=== PATIENT | female | born 1930 | race Caucasian/White ===

== ENCOUNTER → 2017-02-04 | Outpatient (CLI) | payer OTHER | LOC: RAD 16:21 | DX: M79.641 Pain in right hand (principal); M79.642 Pain in left hand; Z88.1 Allergy status to other antibiotic agents; Z88.2 Allergy status to sulfonamides; M21.241 Flexion deformity, right finger joints | CPT/HCPCS: 73130 ==

== ENCOUNTER → 2017-02-28 | Outpatient (CLI) | payer OTHER | LOC: SLEEP-COR 21:30 | DX: G47.33 Obstructive sleep apnea (adult) (pediatric) (principal) | CPT/HCPCS: 95811 ==